=== PATIENT | female | born 1995 | race Caucasian/White ===

== ENCOUNTER 2021-08-22 08:03 | Emergency (ER) | payer BC, SELFPAY ==
[2021-08-22 08:11] VITALS: BP 120/83; PULSE 91; RESP 16; TEMP 37.7; O2SAT 99
--- NOTE | 2021-08-22 08:11 | ED.SKABFB ---
HPI - Skin/Abscess/Foreign Bdy General Chief complaint: Ear Stated complaint: Foreign Body in Ear Time Seen by Provider: 08/22/21 08:11 Source: patient and RN notes reviewed History of Present Illness HPI narrative: Patient is a 25-year-old female who presents the urgent care with complaints of left ear Q-tip. Patient states that she was cleaning out her ear this morning and believes that a cotton ball got stuck in her ear from the end of the Q-tip. Patient has no pain, drainage. No other acute complaints. No acute distress noted. Patient read the plan of care. Some parts of this dictation were generated by voice recognition software and may contain typographical and/or grammatical inaccuracies. Related Data Home Medications Medication Instructions Recorded Confirmed No Home Medications 08/22/21 08/22/21 Allergies Allergy/AdvReac Type Severity Reaction Status Date / Time No Known Allergies Allergy Verified 08/22/21 08:24 Review of Systems Review of Systems: CONSTITUTIONAL: Denies fever, chills, or sweats. EYES: Denies visual changes, redness, or discharge. ENT: Denies rhinorrhea, congestion, sore throat, or otalgia. Possible foreign body in the left ear CARDIOVASCULAR: Denies chest pain, palpitations, or edema. RESPIRATORY: Denies cough or dyspnea. GASTROINTESTINAL: Denies abdominal pain, nausea, vomiting, or diarrhea. GENITOURINARY: Denies dysuria or hematuria. SKIN: Denies rash or itching. MUSCULOSKELETAL: Denies back pain, joint pain, or myalgia. NEUROLOGIC: Denies headache, numbness, or weakness. All other systems reviewed are negative, except as documented in HPI. PMFSH Comments At the time of my signature, I reviewed and agree with the nursing past medical, surgical, social, and family history. There is no relevant family history pertinent to the patient complaint. Exam Narrative: GENERAL: This is a well-nourished, well-developed patient, in no apparent distress. HEAD: normocephalic, atraumatic. EYES: PERRL. Sclera clear/white. Vision is grossly intact. EARS: External ears normal, auditory canals clear and without drainage, TMs normal without perforation. Hearing grossly intact. No foreign body NOSE: External nose normal with no obvious nasal discharge, nares without redness, no rhinorrhea. THROAT: Mucous membranes moist, posterior pharynx clear. NECK: Neck supple CARDIOVASCULAR: Regular rate and rhythm without murmurs, gallops, or rubs. RESPIRATORY: Clear to auscultation. Breath sounds equal bilaterally. No wheezes, rales, or rhonchi. SKIN: warm, intact with no suspicious lesions or rash, good texture and turgor. NEURO: awake, alert, and oriented to person, place and time. There were no obvious focal neurologic abnormalities. EXTREMITIES: No clubbing, cyanosis, or edema. Course Course Level of Care: Express Care Visit Vital Signs Vital signs: Vital Signs Temperature 100 F H 08/22/21 08:11 Pulse Rate 91 08/22/21 08:11 Respiratory Rate 16 08/22/21 08:11 Blood Pressure 120/83 08/22/21 08:11 Pulse Oximetry 99 08/22/21 08:11 Temperature 100 F H 08/22/21 08:11 Pulse Rate 91 08/22/21 08:11 Respiratory Rate 16 08/22/21 08:11 Blood Pressure 120/83 08/22/21 08:11 Pulse Oximetry 99 08/22/21 08:11 Reviewed MDM - Skin/Abscess/Foreign Bdy MDM Narrative Medical decision making narrative: Advised the patient not to use Q-tips aggressively in the ear. There is no foreign body noted in the ear. If you have any further complications or questions you may follow-up with your PCP Differential Diagnosis Differential diagnosis: Likely abscess of skin or subcutaneous tissue, viral exanthem, herpes zoster, insect bites and contact dermatitis Critical Care Time Critical Care Time Critical Care Time: No Discharge Plan Discharge Clinical Impression: Worried well Patient Disposition: Home, Self-Care Condition: Stable Additional Instructions: Advised the patient not to
== END 2021-08-22 08:25 | disposition home or self-care (01) ==
PROVIDERS: Emergency Provider Nurse Practitioner Family; PCP Internal Medicine Geriatric Medicine
DX: Z71.1 Person with feared health complaint in whom no diagnosis is made (principal)
CPT/HCPCS: 99202; G0463

== ENCOUNTER 2022-01-20 08:09 | Emergency (ER) | payer BC, SELFPAY ==
[2022-01-20 08:20] VITALS: BP 132/67; PULSE 99; RESP 16; TEMP 37.7; O2SAT 100
--- NOTE | 2022-01-20 08:20 | ED.URI ---
HPI - URI/Sore Throat General Chief Complaint: Upper Respiratory Infection Stated Complaint: Sore Throat Time Seen by Provider: 01/20/22 08:20 Source: patient Mode of arrival: ambulatory Limitations: no limitations History of Present Illness HPI Narrative: 26-year-old female presents with complaint of sore throat, like exudates to throat since last night. Reports history of strep 5-6 times a year. Was supposed to follow-up with an ENT that was referred by her PCP but has been competing in [employer]. States that she plans to follow-up soon. Has had low-grade fever, fatigue, body aches. No nausea vomiting. All systems reviewed and negative except as noted above. Related Data Allergies Allergy/AdvReac Type Severity Reaction Status Date / Time No Known Allergies Allergy Verified 08/22/21 08:24 Review of Systems Review of Systems: CONSTITUTIONAL: Reports fever, chills, or sweats. EYES: Denies visual changes, redness, or discharge. ENT: Denies rhinorrhea, congestion. Reports sore throat. Denies otalgia. CARDIOVASCULAR: Denies chest pain, palpitations, or edema. RESPIRATORY: Denies cough or dyspnea. GASTROINTESTINAL: Denies abdominal pain, nausea, vomiting, or diarrhea. GENITOURINARY: Denies dysuria or hematuria. SKIN: Denies rash or itching. MUSCULOSKELETAL: Denies back pain, joint pain. Reports myalgia. NEUROLOGIC: Denies headache, numbness, or weakness. PSYCHIATRIC: Denies anxiety or depression. All other systems reviewed are negative, except as documented in HPI. PMFSH Comments At time of signature, agree with nursing past medical, surgical, social and family history. There is no relevant family history pertinent to the presenting complaint. Exam Narrative: GENERAL: This is a well-nourished, well-developed patient, in no apparent distress. HEAD: normocephalic, atraumatic. EYES: PERRL. Sclera clear/white. Vision is grossly intact. EARS: External ears normal, auditory canals clear and without drainage, TMs normal without perforation. Hearing grossly intact. NOSE: External nose normal with no obvious nasal discharge, nares without redness, no rhinorrhea. THROAT: Mucous membranes moist, erythema to posterior pharynx, white exudates to tonsils. Tonsils 1+ bilaterally. NECK: Neck supple, non-tender without lymphadenopathy, masses or thyromegaly. CARDIOVASCULAR: Regular rate and rhythm without murmurs, gallops, or rubs. RESPIRATORY: Clear to auscultation. Breath sounds equal bilaterally. No wheezes, rales, or rhonchi. SKIN: warm, Dry, intact with no suspicious lesions or rash, good texture and turgor. NEURO: awake, alert, and oriented to person, place and time. There were no obvious focal neurologic abnormalities. EXTREMITIES: No joint tenderness, effusion, or edema noted. Course Course Level of Care: Express Care Visit Vital Signs Vital signs: Reviewed MDM - URI/Sore Throat MDM Narrative Medical decision making narrative: Patient is aware of diagnosis, understands and agrees to treatment plan. Anticipatory guidance given. Patient agrees to follow-up as directed and is aware of reasons to seek care at the emergency department. Portions of this record may have been created with voice recognition software Discharge Plan Discharge Clinical Impression: Strep throat Patient Disposition: Home, Self-Care Condition: Stable Instructions: Antibiotic Form, Strep Throat (ED) Additional Instructions: Your strep test was positive today. Take antibiotic as prescribed until gone. Change her toothbrush after taking antibiotic for 48 to 72 hours. Drink plenty of water and rest. Follow-up with your primary care physician if symptoms not improving. Prescriptions: New amoxicillin 500 mg tablet 500 mg PO Q12H 10 Days Qty: 20 0RF Follow-up/Referrals: Cindy,MD Kinsey [Primary Care Provider] - Stand Alone Forms: Work/School Release IP Time of Disposition: 08:39
== END 2022-01-20 08:40 | disposition home or self-care (01) ==
PROVIDERS: Emergency Provider Nurse Practitioner Family; PCP Internal Medicine Geriatric Medicine
DX: J02.0 Streptococcal pharyngitis (principal)
CPT/HCPCS: 87880; 99213; G0463

== ENCOUNTER 2023-05-02 17:46 | Emergency (ER) | payer BC, SELFPAY ==
[2023-05-02 17:54] VITALS: BP 125/74; PULSE 80; RESP 16; TEMP 37.1; O2SAT 98
[2023-05-02 18:04] VITALS: BP 125/74; PULSE 80; RESP 16; TEMP 37.1; O2SAT 98
--- NOTE | 2023-05-02 18:18 | ED.HEATRA ---
HPI - Head Injury General Chief complaint: Head Injury Stated complaint: Head Injury Source: patient and RN notes reviewed History of Present Illness HPI Narrative: 27 yo F presents to urgent care with complaints of head injury. Pt states at about 1:00 pm today, her large dog ran into her, causing her fall over him and hit her left head on the concrete. Pt denies any LOC. Pt reports a swelling to her left side of head. Pt reports left lateral neck pain and left sided MURPHY. Pt states she vomited x 1 about 30 min after the incident but states she has also vomited in the past with her anxiety which she admits to having today. Denies any blurry vision, nausea, numbness, tingling, posterior neck pain, use of anticoagulants, or syncope. Pt took Tylenol earlier today and applying ice to her head with minimal relief. Pt has no other complaints. Related Data Home Medications Medication Instructions Recorded Confirmed etonogestrel 68 mg subdermal 1 implant subdermal ONCE 05/02/23 05/02/23 implant (Nexplanon) Allergies Allergy/AdvReac Type Severity Reaction Status Date / Time No Known Allergies Allergy Verified 05/02/23 18:03 Review of Systems Review of Systems: Pertinent positives and pertinent negatives per HPI. PMFSH Comments At the time of my signature, I reviewed and agree with the nursing past medical, surgical, social, and family history. There is no relevant family history pertinent to the patient complaint. Exam Narrative: GENERAL: This is a well-nourished, well-developed patient, in no apparent distress. HEAD: 3 cm hematoma to left parietal scalp EYES: Sclera clear/white. Vision is grossly intact. PERRLA. EARS: External ears normal, auditory canals clear and without drainage, TMs normal without perforation. Hearing grossly intact. NOSE: External nose normal with no obvious nasal discharge, nares without redness, no rhinorrhea. THROAT: Mucous membranes moist, posterior pharynx clear. NECK: Neck supple, non-tender without lymphadenopathy, masses or thyromegaly. CARDIOVASCULAR: Regular rate and rhythm without murmurs, gallops, or rubs. RESPIRATORY: Clear to auscultation. Breath sounds equal bilaterally. No wheezes, rales, or rhonchi. SKIN: warm, intact with no suspicious lesions or rash, good texture and turgor. NEURO: awake, alert, and oriented to person, place and time. There were no obvious focal neurologic abnormalities. EXTREMITIES: No clubbing, cyanosis, or edema. No joint tenderness, effusion, or edema noted. BACK: Nontender without deformity or crepitus. No flank tenderness. Course Course Level of Care: Express Care Visit Vital Signs Vital signs: Vital Signs Temperature 98.7 F 05/02/23 17:54 Pulse Rate 80 05/02/23 17:54 Respiratory Rate 16 05/02/23 17:54 Blood Pressure 125/74 05/02/23 17:54 Pulse Oximetry 98 05/02/23 17:54 Oxygen Delivery Room Air 05/02/23 17:54 Temperature 98.7 F 05/02/23 18:04 Pulse Rate 80 05/02/23 18:04 Respiratory Rate 16 05/02/23 18:04 Blood Pressure 125/74 05/02/23 18:04 Pulse Oximetry 98 05/02/23 18:04 Oxygen Delivery Room Air 05/02/23 18:04 reviewed MDM - Head Injury MDM Narrative Medical decision making narrative: Give yourself brain rest; limit your light exposure, no electronics or reading until your symptoms improve. May start to introduce these things slowly and if your symptoms return, go back to the dark room. Go to the ER with any new or worsening symptoms. Patient does not meet criteria for head CT according to the [place] head CT rule. Differential Diagnosis Differential diagnosis: Likely concussion without loss of consciousness, closed head injury and concussion with loss of consciousness Critical Care Time Critical Care Time Critical Care Time: No Discharge Plan Discharge Clinical Impression: Closed head injury Qualifiers: Encounter type: initial encounter Qualified Code(s): S09.90XA - Unsp
== END 2023-05-02 18:21 | disposition home or self-care (01) ==
PROVIDERS: Emergency Provider Nurse Practitioner Family; PCP Internal Medicine Geriatric Medicine
DX: S09.90XA Unspecified injury of head, initial encounter (principal); W19.XXXA Unspecified fall, initial encounter
CPT/HCPCS: 99213; G0463